=== PATIENT | male | born 1945 | race Caucasian/White ===

== ENCOUNTER → 2021-02-01 | Outpatient (CLI) | payer MEDICARE | LOC: KOH-I 13:17 | DX: M79.672 Pain in left foot (principal); Z98.890 Other specified postprocedural states | CPT/HCPCS: 73630 ==

== ENCOUNTER → 2021-03-01 | Outpatient (CLI) | payer MEDICARE | LOC: KOH-I 14:00 | DX: Z01.818 Encounter for other preprocedural examination (principal); I82.412 Acute embolism and thrombosis of left femoral vein | CPT/HCPCS: 93926 ==